=== PATIENT | female | born 1950 | race Caucasian/White ===

== ENCOUNTER → 2020-01-03 15:19 | Outpatient (CLI) | payer MEDICARE, SELFPAY ==
--- NOTE | ~2020-01-03 | XR_ITS ---
EXAMINATION: XR lumbar spine 2-3V DATE: 01/03/2020 15:39 INDICATION: Dorsalgia, unspecified TECHNIQUE: Anteroposterior and lateral views of the lumbar spine, and cone-down lateral view of the l umbosacral junction were obtained. COMPARISON: 01/06/2014 FINDINGS: There is grade 1 anterolisthesis of L5 on S1 with interval worsening since the prior examin ation. There is severe loss of intervertebral disc space height at L4-5 and moderate loss of interver tebral disc space height at L5-S1. The vertebral body heights are normal. There is severe facet osteo arthritis of the lower lumbar spine. There are right lower paraspinal and bilateral pelvic surgical c lips. IMPRESSION: 1. Grade 1 anterolisthesis of L5 on S1 with interval worsening since the comparison examination. 2. Severe lower lumbar spondylosis. Reviewed, dictated and finalized at location A. IMPRESSION: 1. Grade 1 anterolisthesis of L5 on S1 with interval worsening since the compar luis daniel examination. 2. Severe lower lumbar spondylosis.
--- NOTE | ~2020-01-03 | XR_ITS ---
EXAMINATION: XR hip RT 2V w AP pelvis INDICATION: Right hip pain TECHNIQUE: AP view of the pelvis and two views of the right hip are obtained. COMPARISON: None available FINDINGS: Bone alignment is normal. There is no fracture. Mild bilateral hip osteoarthritis is noted. There are right paraspinal and bilateral pelvic surgical clips. IMPRESSION: 1. Mild hip osteoarthritis without acute findings. Reviewed, dictated and finalized at location A.
== END ==
PROVIDERS: PCP Emergency Medicine; Visit Provider Emergency Medicine
DX: M25.551 Pain in right hip (principal); M54.9 Dorsalgia, unspecified; G89.29 Other chronic pain; M16.11 Unilateral primary osteoarthritis, right hip; M43.17 Spondylolisthesis, lumbosacral region; M47.816 Spondylosis without myelopathy or radiculopathy, lumbar region
CPT/HCPCS: 72100; 73502; 73521

== ENCOUNTER → 2020-08-08 13:43 | Outpatient (CLI) | payer MEDICARE, SELFPAY ==
--- NOTE | ~2020-08-08 | MM_ITS ---
EXAMINATION: MM screening linda BI w marissa HISTORY: Screening mammogram TECHNIQUE: Craniocaudal and mediolateral oblique 3-D tomosynthesis images were obtained and synthetic 2-D images were generated. CAD analysis was submitted and interpreted. COMPARISON: 09/23/2018, 09/12/2017, 04/29/2016 bilateral digital screening mammogram examinations BREAST PARENCHYMAL COMPOSITION: There are scattered areas of fibroglandular density. FINDINGS: There are numerous bilateral benign calcifications. There is no evidence of suspicious mass , calcification, or architectural distortion to suggest malignancy in either breast. There has been n o suspicious interval change. IMPRESSION: 1. No mammographic evidence of malignancy. 2. Recommend routine screening mammography in one year. BI-RADS Category 2: Benign finding(s). Reviewed, dictated and finalized at location A.
== END ==
PROVIDERS: PCP Emergency Medicine; Visit Provider Emergency Medicine
DX: Z12.31 Encounter for screening mammogram for malignant neoplasm of breast (principal)
CPT/HCPCS: 77063; 77067

== ENCOUNTER → 2022-01-10 13:23 | Outpatient (CLI) | payer MEDICARE, SELFPAY ==
--- NOTE | ~2022-01-10 | MM_ITS ---
EXAMINATION: MM screening linda BI w marissa HISTORY: Screening mammogram TECHNIQUE: Craniocaudal and mediolateral oblique 3-D tomosynthesis images were obtained and synthetic 2-D images were generated. CAD analysis was submitted and interpreted. COMPARISON: 08/08/2020, 09/23/2018, 09/08/2017 bilateral screening mammogram examinations BREAST PARENCHYMAL COMPOSITION: The breasts are almost entirely fatty. FINDINGS: Bilateral calcifications including bilateral benign small skin calcifications. There is no evidence of suspicious mass, calcification, or architectural distortion to suggest malignancy in eith er breast. There has been no suspicious interval change. IMPRESSION: 1. No mammographic evidence of malignancy. 2. Recommend routine screening mammography in one year. BI-RADS Category 2: Benign finding(s). Reviewed, dictated and finalized at location A.
== END ==
PROVIDERS: Visit Provider Emergency Medicine
DX: Z12.31 Encounter for screening mammogram for malignant neoplasm of breast (principal)
CPT/HCPCS: 77063; 77067

== ENCOUNTER → 2022-06-03 15:35 | Outpatient (CLI) | payer MEDICARE, SELFPAY ==
--- NOTE | ~2022-06-03 | DEXA_ITS ---
Bone Density Report Name: RUDDY CONWAY Age: 71 Sex: Female Ethnicity: White Date of : 1950 Indication: osteopenia; monitoring treatment; parental hip fracture; hysterectomy; postmenopausal Referring Provider: PAULO DOMINIQUE Study: Bone densitometry was performed. Exam Date: June 03, 2022 Accession number: [id number] Bone Density: Region BMD T-score Z-score Classification AP Spine (L1-L4) 1.284 2.2 4.4 Normal Femoral Neck (Left) 0.693 -1.4 0.5 Osteopenia Total Hip (Left) 0.784 -1.3 0.3 Osteopenia Femoral Neck (Right) 0.646 -1.8 0.1 Osteopenia Total Hip (Right) 0.837 -0.9 0.8 Normal Total Hip Mean 0.811 -1.1 0.6 Osteopenia World Health Organization criteria for BMD impression classify patients as: Normal (T-score at or above -1.0), Osteopenia (T-score between -1.0 and -2.5), or Osteoporosis (T-score at or below -2.5). 10-year Fracture Risk: FRAX not reported because: Treated for osteoporosis Previous Exams: Region Exam Age BMD T-score BMD Change BMD Change Date g/cm2 vs Baseline vs Previous AP Spine(L1-L4) 06/03/2022 71 1.284 2.2 0.310* 0.040* 06/18/2019 68 1.243 1.8 0.269* 0.011 02/12/2017 66 1.232 1.7 0.258* 0.027* 09/15/2012 61 1.205 1.4 0.230* 0.230* 05/30/2010 59 0.974 -0.7 Total Hip(Left) 06/03/2022 71 0.784 -1.3 0.076* 0.016 06/18/2019 68 0.768 -1.4 0.060* 0.001 02/12/2017 66 0.767 -1.4 0.059* -0.030* 09/15/2012 61 0.797 -1.2 0.089* 0.089* 05/30/2010 59 0.708 -1.9 Total Hip(Right) 06/03/2022 71 0.837 -0.9 0.075* 0.012 06/18/2019 68 0.825 -1.0 0.063* 0.037* 02/12/2017 66 0.788 -1.3 0.026 -0.018 09/15/2012 61 0.806 -1.1 0.044* 0.044* 05/30/2010 59 0.762 -1.5 *Denotes significance at 95% confidence level, LSC for AP Spine = 0.022 g/cm2, LSC for Total Hip = 0.027 g/cm2 Clinical Information Provided by Patient: Parent has had a hip fracture Is being treated for osteoporosis Has used the following medications: Fosamax (i.e. alendronate), Vitamin D, MTV Has the following medical conditions: Hysterectomy, HX OF OVARIAN CA- 1994 WITH CHEMO Patient maximum height was 62.0 Menopause Age: 44 Drinks caffeinated beverages Onset of menses at age 11 Number of children 0
== END ==
PROVIDERS: PCP Emergency Medicine; Visit Provider Emergency Medicine
DX: M81.0 Age-related osteoporosis without current pathological fracture (principal); M85.852 Other specified disorders of bone density and structure, left thigh; M85.851 Other specified disorders of bone density and structure, right thigh
CPT/HCPCS: 77080

== ENCOUNTER 2022-12-14 00:02 | Inpatient (IN) | payer MEDICARE, SELFPAY ==
[2022-12-14] VITALS (26 sets, daily range): BP systolic 106–150; BP diastolic 64–88; PULSE 66–94; RESP 11–31; TEMP 36.3–37.3; O2SAT 86–100
--- NOTE | 2022-12-14 | ECHO_ITS ---
Patient Info Name: Cait Fritz Age: 71 years : 1950 Gender: Female Ht: 62 in Wt: 189 lbs BSA: 1.98 m2 HR: 89 bpm BP: 110 / 60 mmHg Technical Quality: Fair Exam Date: 12/14/2022 7:30 AM Exam Location: [facility] Pulmonary Exam Room: ED 10 Patient Status: Outpatient Admit Date: 12/14/2022 Staff Ordering Physician: Steve Salomon MD Elevator Dispatcher: Uyen Espinoza RDCS Attending Provider: Bowen Kitchen MD Exam Type: CA echo dop color flow w con Study Info Complete two-dimensional, color flow and Doppler transthoracic echocardiogram is performed with contrast to opacify the left ventricle and to improve the deliniation of the left ventricle endocardial borders. Contrast/Agitated Saline Contrast/Ag. Saline: Definity Amount: 2.00 ml Administered By: Uyen Espinoza [facility] Existing IV Access: Yes IV Access Condition: patent with no signs of infiltration Summary 1. Left ventricular chamber dimension is normal. 2. Definity contrast administered improved wall motion interpretation. 3. Left ventricular systolic function is normal, estimated at 60-65%. 4. The left ventricular diastolic function is grade I diastolic dysfunction. 5. E/e' 10 is mildly elevated. 6. There is mild aortic valve sclerosis. 7. There is trace aortic valve regurgitation. 8. The mitral valve has mildly calcified annulus. 9. No pulmonary hypertension, estimated pulmonary arterial systolic pressure is 26 mmHg. Left Ventricle Definity contrast administered improved wall motion interpretation. E/e' 10 is mildly elevated. Left ventricular chamber dimension is normal. Left ventricular systolic function is normal, estimated at 60-65%. The left ventricular diastolic function is grade I diastolic dysfunction. Right Ventricle Right ventricular systolic function is normal and with normal TAPSE 2.1 cm. Right ventricular chamber dimension is normal. Left Atria Left atrial chamber dimension is normal. Right Atria Right atrial chamber dimension is normal. Aortic Valve The aortic valve is trileaflet. There is mild aortic valve sclerosis. There is no aortic valve stenosis. There is trace aortic valve regurgitation. Pulmonic Valve There is no pulmonic regurgitation. Mitral Valve The mitral valve has mildly calcified annulus. There is no mitral valve stenosis. There is no mitral valve regurgitation. Tricuspid Valve There is no tricuspid valve regurgitation. No pulmonary hypertension, estimated pulmonary arterial systolic pressure is 26 mmHg. Pericardium/Pleural There is no pericardial effusion. Inferior Vena Cava Normal inferior vena cava with >50% collapse upon inspiration consistent with normal right atrial pressure, 5 mmHg. Aorta The aortic root size at the sinus of Valsalva is normal. Left Ventricular Outflow Tract Name Value Normal LVOT 2D LVOT Diameter 2.10 cm LVOT Doppler LVOT Peak Gradient 4 mmHg LVOT Mean Gradient 2 mmHg LVOT VTI 19.30 cm LVOT VTI/AV
--- NOTE | ~2022-12-14 | CT_ITS ---
EXAMINATION: CT brain wo con DATE: 12/14/2022 01:54 INDICATION: Syncopal episode at home. Fall. TECHNIQUE: Computed tomography (CT) of the head was performed without intravenous contrast. The mA wa s adjusted according to patient size. Iterative reconstruction technique was employed. Exam dose: 60 5.33 mGy-cm total exam DLP. COMPARISON: None FINDINGS: No intracranial mass lesion or hemorrhage or cerebrovascular accident, midline shift or mas s effect effect. No subdural or epidural hematoma is detected. Mild cerebral and cerebellar volume loss. Mastoid air cells and paranasal sinuses are normally developed and aerated. No fracture or bone destr uction of the cranial vault. Initial teleradiology interpretation suggested increased density at the basilar vein and vein of Gale n, with recommendation for CT venogram. IMPRESSION: Suggestion of increased density of basilar vein and vein of Denny; CT venogram was recom mended Reviewed, dictated and finalized at Location A. Reviewed, dictated and finalized at location A. WARE ENGINEER ADVISOR IMPRESSION: Suggestion of increased density of basilar vein and vein of Denny; CT venogram was recommended
--- NOTE | ~2022-12-14 | US_ITS ---
EXAMINATION: US carotid duplex BI DATE: 12/14/2022 14:33 INDICATION: Syncope TECHNIQUE: Grayscale, color Doppler, and pulsed Doppler images of the cervical carotid arteries were obtained. The degree of vessel stenosis is placed in one of the following categories: normal, <50%, 5 0-69%, >=70% but less than near-occlusion, near-occlusion, or total occlusion. Note that percent sten osis relative to normal distal artery lumen diameter is indirectly measured from velocity measurement s as described by Osmin, et al. Radiology 2003; 229:340-346. COMPARISON: None. FINDINGS: RIGHT: The right common carotid artery (CCA) peak systolic velocity (PSV) is 87.2 cm/s. The right internal c arotid artery (ICA) PSV is 63.5 cm/s. The right ICA end-diastolic velocity (EDV) is 26.1 cm/s. [facility] PSV ratio is 0.7. Grayscale and color Doppler images yield an estimate of 0% diameter red uction from plaque in the ICA. The external carotid artery (ECA) PSV is 82.2 cm/s. There is antegrade flow in the right vertebral artery. LEFT: The left CCA PSV is 110.7 cm/s. The left ICA PSV is 72.3 cm/s. The left ICA EDV is 19.7 cm/s. The [facility] t ICA/CCA PSV ratio is 0.7. Grayscale and color Doppler images yield an estimate of 0% diameter reduc tion from plaque in the ICA. The ECA PSV is 85.7 cm/s. There is antegrade flow in the left vertebral artery. IMPRESSION: 1. No stenosis in the right internal carotid artery. 2. No stenosis in the left internal carotid artery. Reviewed, dictated and finalized at Location A. Reviewed, dictated and finalized at location A. TICE PROFESSIONAL
--- NOTE | ~2022-12-14 | CT_ITS ---
EXAMINATION: CT brain w con DATE: 12/14/2022 06:52 INDICATION: Fall. Syncope. TECHNIQUE: Computed tomography (CT) of the head was performed with 100 CC Omnipaque 350 intravenous c ontrast. The mA was adjusted according to patient size. Iterative reconstruction technique was employ ed. Exam dose: 605.33 mGy-cm total exam DLP. COMPARISON: December 14, [address] brain FINDINGS: Bilateral carotid siphon internal carotid artery calcifications. No intracranial arterial o r venous sinus thrombosis is noted. No intracranial mass lesion or hemorrhage, midline shift or mass effect effect. No subdural or epidur al hematoma. IMPRESSION: Cerebral atherosclerosis No acute intracranial abnormality Reviewed, dictated and finalized at Location [facility]. Reviewed, dictated and finalized at location A. 911 EMERGENCY DISPATCHER
--- NOTE | ~2022-12-14 | CT_ITS ---
EXAMINATION: CTA chest PE abdomen pel DATE: 12/14/2022 01:55 INDICATION: Substernal chest pain. Syncopal episode. Evaluate for pulmonary embolism. TECHNIQUE: Computed tomography angiography (CTA) of the chest was performed with 100 mL Omnipaque-350 intravenous contrast timed to evaluate the pulmonary arteries. Coronal maximum intensity projection 3D-reconstructions were created by the technologist. Automated exposure control and iterative reconst ruction technique were employed. Exam dose: 1453.81 mGy-cm total exam DLP. COMPARISON: None. FINDINGS: There is diagnostic contrast enhancement of the pulmonary arteries and no evidence of pulmo nary embolism. Ascending aortic lumen measures up to 3.9 cm approximate maximal dimension. No thoracic aortic dissec tion is evident. There is thoracic aortic atherosclerosis as well as great vessel and coronary artery calcified atherosclerosis. Heart size is within normal range. No pericardial or pleural effusion. No hilar or mediastinal mass lesion or lymphadenopathy. Calcified left lower lobe pulmonary granuloma. No pulmonary infiltrate or consolidation. Normal morphology of the adrenal glands. Diffuse idiopathic skeletal hyperostosis of the thoracic and lumbar spine. No suspicious osteolytic o r osteoblastic lesions are noted. IMPRESSION: No evidence of pulmonary embolism Aortic, coronary and great vessel atherosclerosis Reviewed, dictated and finalized at [facility]. Reviewed, dictated and finalized at location A. ER AND [employer] HELPER MACHINE
--- NOTE | 2022-12-14 00:15 | ECG_ITS ---
Measurements Intervals Mason Rate: 70 P: 52 FL: 198 QRS: -14 QRSD: 99 T: 61 QT: 404 QTc: 436 Interpretive Statements SINUS RHYTHM WITH OCCASIONAL VENTRICULAR PREMATURE COMPLEXES LOW QRS VOLTAGE IN PRECORDIAL LEADS [QRS DEFLECTION < 1.0 mV IN CHEST LEADS] ABNORMAL ECG NO PREVIOUS ECG AVAILABLE FOR COMPARISON Electronically Signed On 12-14-2022 7:56:06 REAM CUTTER by Kd Strong M.D.
--- NOTE | 2022-12-14 00:22 | ED.DIZZY ---
HPI - Dizziness General Chief Complaint: Syncope <Emma Che PA-C - Last Filed: 12/14/22 03:23> Stated Complaint: syncope <Emma Che PA-C - Last Filed: 12/14/22 03:23> Time Seen by Provider: 12/14/22 00:06 <Emma Che PA-C - Last Filed: 12/14/22 03:23> History of Present Illness HPI Narrative: 71 y/o F w/ hx of HLD and HTN reports via EMS after an episode of syncope at 2300. Pt states she was sleeping, woke up to get a snack, walked to the kitchen and began feeling diaphoretic, nauseous, and lightheaded. She then sat down on her kitchen chair and woke up on the floor. Pt reports she lost consciousness but was not sure for how long. She is not sure if she hit her head. Reports epigastric pain and indigestion when she woke up from the fall. She called EMS who gave her 4mg zofran, nitro spray, and ASA 324mg prior to arrival. Pt states she was feeling fine when she went to bed. Reports a history of synope about 6 months ago when she was ill with vomiting and diarrhea. She is currently denying vomiting, diarrhea, fever, body aches, chills, headache, vision changes, focal numbness or weakness, AMS, urinary complaints. She is reporting generalized weakness and and nausea at this time. Patient reports she has not been drinking a lot of water. <Emma Che PA-C - Last Filed: 12/14/22 03:23> Related Data Home Medications: Home Medications Medication Instructions Recorded Confirmed loratadine 10 mg tablet 10 mg PO DAILY 12/16/19 12/14/22 alendronate 70 mg tablet 70 mg PO WEEKLY 12/14/22 12/14/22 lisinopril 20 2 tablet DAILY 12/14/22 12/14/22 mg-hydrochlorothiazide 12.5 mg tablet simvastatin 40 mg tablet 40 mg PO HS 12/14/22 12/14/22 <LALO Merino Last Filed: 12/14/22 03:23> Allergies/Adverse Reactions: Allergies Allergy/AdvReac Type Severity Reaction Status Date / Time No Known Allergies Allergy Verified 09/24/22 10:49 <Emma Che PA-C - Last Filed: 12/14/22 03:23> Review of Systems Review of Systems: CONSTITUTIONAL: Denies fever, chills EYES: Denies visual changes, redness, or discharge. ENT: Denies rhinorrhea, congestion, sore throat, or otalgia. CARDIOVASCULAR: Denies chest pain, palpitations, or edema. RESPIRATORY: Denies cough or dyspnea. GASTROINTESTINAL: See HPI GENITOURINARY: Denies dysuria or hematuria. SKIN: Denies rash or itching. MUSCULOSKELETAL: Denies back pain, joint pain, or myalgia. NEUROLOGIC: See HPI PSYCHIATRIC: Denies anxiety or depression. <Emma Che PA-C - Last Filed: 12/14/22 03:23> [facility] Past Medical History Medical History: Medical History Body mass index [BMI] 30.0-30.9, adult (08/17/15) Body mass index [BMI] 31.0-31.9, adult (02/15/16) Body mass index [BMI] 32.0-32.9, adult (08/19/16) Body mass index [BMI] 33.0-33.9, adult (11/25/16) Essential (primary) hypertension HLD (hyperlipidemia) Osteoporosis Vitamin D deficiency <Emma Che PA-C - Last Filed: 12/14/22 03:23> Family History Family History: Family History Father Acute myocardial infarction, Onset Age: 64 Other Family history of malignant neoplasm <Emma Che PA-C - Last Filed: 12/14/22 03:23> Social History Social History: Social History Smoking packs per day: 0.5 Smoking cigarettes per day: 10.0 Years smoked: 15 Smoking pack-years: 7.50 Smoking status: Former smoker Tobacco type: cigarettes Alcohol intake: never Substance use: never Lack of Transportation: No Lack of Food: Never True Current Housing: I Have Housing Concerned About Future Housing: No Difficulty Paying Gas/Electric Bills: No Difficulty Paying for Meds: No Currently Unemployed: No Education: High School Diploma/GED
[2022-12-14] MEDS: SODIUM CHLORIDE 0.9% IV 1,000 ML 999 ML IV CONT (00:33)
[2022-12-14] MEDS: ONDANSETRON INJ 4 MG/2 ML VIAL IV PUSH (00:33)
[2022-12-14 00:45] LABS: Basophils Absolute Auto 0.1 K/mm3 (0.0-0.1); Basophils Percent Auto 0.8 % (0.2-1.2); Eosinophils Absolute Auto 0.2 K/mm3 (0-0.3); Eosinophils Percent Auto 2.1 % (0-4.4); Hematocrit 39.9 % (37.0-47.0); Hemoglobin 13.8 g/dL (12.0-15.0); Immature Granulocyte Absolute 0.05 K/mm3 (0.00-0.031); Immature Granulocyte Percent A 0.7 % (0-0.5); Lymphocytes Absolute Auto 2.84 K/mm3 (0.9-3.2); Mean Corpuscular HGB Conc 34.6 g/dl (32-36); Mean Corpuscular Hemoglobin 30.8 pg (26-34); Mean Corpuscular Volume 89.1 fl (80-100); Mean Platelet Volume 9.7 fl (7.4-10.4); Monocytes Absolute Auto 0.6 K/mm3 (0.1-0.6); Monocytes Percent Auto 7.2 % (2.6-8.5); Neutrophils Percent Auto 52.2 % (45.5-73.1); Platelet Count Result 237 k/mm3 (150-375); Red Blood Count 4.48 M/mm3 (4.2-5.4); Red Cell Distribution Width 12.5 % (11.5-14.5); White Blood Count 7.7 K/mm3 (4.5-10.0)
[2022-12-14 01:18] LABS: Alanine Aminotransferase 20 U/L (6-35); Albumin Level 4.5 g/dL (3.5-5.1); Alkaline Phosphatase 73 U/L (38-126); Anion Gap 7 mmol/L (8-16); Aspartate Amino Transferase 27 U/L (14-36); Bilirubin,Total 0.7 mg/dL (0.2-1.3); Blood Urea Nitrogen 28 mg/dL (7-17); Calcium 9.7 mg/dL (8.4-10.2); Carbon Dioxide 25 mmol/L (22-30); Chloride 101 mmol/L (98-107); Estimated CRCL calculation 50 ml/min; Estimated Glomerular Filt Rate > 60; Glucose 124 mg/dL (65-110); Lipase 109 U/L (23-300); Potassium 3.2 mmol/L (3.4-5.0); Sodium 133 mmol/L (137-145)
[2022-12-14 01:21] LABS: NT Pro B Type Natriuretic Pept 107 pg/mL (19.9-100); Troponin I < 0.012 ng/mL (0.000-0.034)
[2022-12-14] MEDS: PROCHLORPERAZINE EDISYLATE 10 MG/2 ML VIAL IV PUSH (02:00)
[2022-12-14 02:19] LABS: Influenza A QL RT-PCR Negative (Negative); Influenza B QL RT-PCR Negative (Negative); SARS-CoV-2 RNA PCR Negative
--- NOTE | 2022-12-14 03:40 | PM.IMHP ---
H&P: HPI History of Present Illness Date/Time: 12/14/22 03:40 Chief Complaint: Syncope Narrative: This is a 71-year-old female with past medical history significant for hypertension, dyslipidemia. Patient presents to the emergency room after having syncopal episode while standing in her kitchen had lightheadedness, diaphoresis, cold clammy sensation, decided to sit down and upon waking up she found herself laying on the floor was able to get up on her own denies any incontinence of bowel or bladder, was able to walk to her room and called EMS patient was brought to the emergency room. Got nitro aspirin and Zofran in route. Patient states that she has been in her usual state of health denies any fevers, rigors, chills, cough, sputum production, nausea, vomiting, diarrhea, abdominal pain, leg swelling, calves pain, palpitations, PND orthopnea, no focal sensorimotor deficit, no speech disturbance. Preliminary workup has been essentially nonrevealing. CT a of chest abdomen and pelvis are currently in progress. Patient is been placed in observation for further evaluation management and treatment. Review of Systems Review of Systems: Syncope Constitutional: Constitutional: Denies chills, Denies fatigue, Denies fever(s), Denies lethargy, Denies malaise, Denies night sweats and Denies weakness Eyes: Eyes: Denies change in vision ENT: Denies dysphagia, Reports dizziness and Denies odynophagia Cardiovascular: Cardiovascular: Denies chest pain, Denies rapid heart rate, Denies irregular heart rhythm, Denies leg edema, Reports lightheadedness and Denies dyspnea Respiratory: Respiratory: Denies cough and Denies dyspnea Gastrointestinal: Gastrointestinal: Denies abdominal pain, Denies dyspepsia, Denies heartburn, Denies diarrhea, Denies nausea and Denies vomiting Genitourinary: Genitourinary: Denies dysuria Musculoskeletal: Musculoskeletal: Denies arthralgias and Denies muscle weakness Integumentary/Breasts: Skin/Breast: Denies rash Neurologic: Denies Abnormal speech present, Denies confusion, Reports syncope, Denies frequent falls, Denies headache(s), Denies focal weakness and Denies Sensory deficit (Neuro) Psychiatric: Psychiatric: Reports no additional psychiatric complaints and Reports as per HPI Endocrine: Endocrine: Denies cold intolerance, Denies flushing, Denies heat intolerance, Denies polyphagia, Denies polydipsia and Denies palpitations Hematologic/Lymphatic: Hematologic/Lymphatic: Reports no additional hematologic/lymphatic complaints and Reports as per HPI Allergic/Immunologic: Allergic/Immunologic: Reports no additional allergic/immunologic complaints and Reports as per HPI [facility] Past Medical History Medical History Body mass index [BMI] 30.0-30.9, adult (08/17/15) Body mass index [BMI] 31.0-31.9, adult (02/15/16) Body mass index [BMI] 32.0-32.9, adult (08/19/16) Body mass index [BMI] 33.0-33.9, adult (11/25/16) Essential (primary) hypertension HLD (hyperlipidemia) Osteoporosis Vitamin D deficiency Family History Family History Father Acute myocardial infarction, Onset Age: 64 Other Family history of malignant neoplasm Social History Social History Smoking status: Never smoker Alcohol intake: never Meds Home Medications and Allergies Home Medications Medication Instructions Recorded Confirmed Type loratadine 10 mg tablet 10 mg PO DAILY 12/16/19 12/18/21 History alendronate 70 mg tablet See Rx Instructions PO .COMPLEX 07/01/22 Rx #12 tabs lisinopril 20 2 tablet PO DAILY #180 tabs 07/03/22 Rx mg-hydrochlorothiazide 12.5 mg tablet amlodipine 5 mg tablet (Norvasc) 5 mg PO DAILY #90 tabs 10/09/22 Rx simvastatin 40 mg tablet See Rx Instructions .Route 11/25/22 Rx .COMPLEX #90 tabs Allergies A
[2022-12-14] MEDS: POTASSIUM CHLORIDE 20 MEQ TABLET 40 MEQ PO (03:46)
[2022-12-14 03:48] LABS: Appearance Urine Clear (Clear); Bilirubin Urine Negative (Negative); Blood Urine Negative (Negative); Color Urine Yellow (Yellow); Glucose Urine UA Negative (Negative); Ketones Urine Negative (Negative); Leukocyte Esterase Ur Negative LEU/UL (Negative); Nitrate Urine Negative (Negative); Protein Urine Negative (Negative); Specific Grav Ur 1.032 (1.001-1.035); Urobilinogen Urine 0.2 mg/dL (<2.0); pH Urine 6.5 (5.0-9.0)
[2022-12-14 04:07] LABS: Troponin I < 0.012 ng/mL (0.000-0.034)
[2022-12-14 04:30] LABS: Add Urine Microscopic? NO
[2022-12-14 06:43] LABS: Troponin I < 0.012 ng/mL (0.000-0.034)
--- NOTE | 2022-12-14 07:09 | PC.NURSE ---
Report given to Marielena Santana RN
[2022-12-14] MEDS: PERFLUTREN LIPID MICROSPHERES 1.5 ML VIAL DILUTED TO 10 ML TOTAL VOLUME IV PUSH (08:00)
--- NOTE | 2022-12-14 16:00 | PM.IMPN ---
Progress Note: A&P Assessment and Plan (1) Syncope and collapse: Code(s): R55 - Syncope and collapse Status: Acute Assessment and Plan: Place in observation Echocardiogram in a.m. Carotid Doppler in a.m. CT a of chest abdomen and pelvis currently in progress CT head reviewed Orthostatic Bolus IV fluids as needed Blood pressure has remained stable (2) Hypertension: Code(s): I10 - Essential (primary) hypertension Status: Acute Assessment and Plan: Resume home meds as needed (3) Polyosteoarthritis, unspecified: Code(s): M15.9 - Polyosteoarthritis, unspecified Status: Acute Assessment and Plan: Tylenol as needed (4) Chronic back pain: Qualifiers: Back pain location: low back pain Back pain laterality: unspecified Sciatica presence: without sciatica Qualified Code(s): M54.5 - Low back pain; G89.29 - Other chronic pain Code(s): M54.9 - Dorsalgia, unspecified; G89.29 - Other chronic pain Status: Acute Assessment and Plan: Tylenol as needed (5) Osteoporosis: Qualifiers: Osteoporosis type: age-related Presence of current pathological fracture: with current pathological fracture Encounter type: sequela Qualified Code(s): M80.00XS - Age-related osteoporosis with current pathological fracture, unspecified site, sequela Code(s): M81.0 - Age-related osteoporosis without current pathological fracture Status: Acute Assessment and Plan: On biphosphonate therapy (6) HLD (hyperlipidemia): Qualifiers: Hyperlipidemia type: mixed hyperlipidemia Qualified Code(s): E78.2 - Mixed hyperlipidemia Code(s): E78.5 - Hyperlipidemia, unspecified Status: Acute Assessment and Plan: Continue statin Plan Syncopal episode: Troponins negative negative serial cardiac enzymes EKG with normal sinus rhythm with nonspecific ST-T changes. COVID flu negative WBC count is normal no signs of infection BUN is mildly elevated mild hypokalemia noted. UA is negative vitals been stable. Carotid ultrasound and echocardiogram ordered which is pending . CTA is negative for PE. There is noted aortic coronary and great vessel atherosclerosis. CT head with suggestion of increased density of the basilar vein and vein of Denny. CT venogram was done which showed no acute abnormality # hypertension Hyperlipidemia Osteoporosis Chronic back pain Poly osteoarthritis DVT prophylaxis Code status full code Subjective Date/time seen: 12/14/22 16:00 Interval history: Presented after an episode of syncope at 11:00 p.m.. Peck diaphoretic nauseous and lightheaded refer that happened. She sat on the chair however she woke on the floor after she loss consciousness. No report of head injury. she feels well. Telemetry was reviewed. Occasional PVCs otherwise normal sinus rhythm Review of Systems Review of Systems: All systems reviewed & are unremarkable except as noted in HPI and below Exam Narrative: GENERAL: Well-appearing, well-nourished, and in no acute distress. HEAD: Normocephalic, atraumatic. EYES: PERRLA and EOMI. NECK: Supple.? No adenopathy or masses. CHEST: Clear to auscultation.? No respiratory distress.? No wheezes rales or rhonchi HEART: Regular rate and rhythm.? No murmur heard.? Normal peripheral pulses. ABDOMEN: Soft, nondistended, normal active bowel sounds. EXTREMITIES: Normal range of motion.? No edema. SKIN: Warm, dry, no rash. NEURO: No focal deficits.? Alert and oriented x3.? Cranial nerves II through XII intact.? Sensation intact throughout extremities.? Strength 5 out of 5 throughout.? DP and radial pulses 2+.? Normal [id number]. PSYCH: Normal mood and affect. ? Objective Data Vital Signs Vital Signs: Vital Signs - 24 hr 12/14/22 00:12 12/14/22 00:16 12/14/22 00:32 Temperature 97.4 F L Pulse Rate 73 75 66 Respiratory Rate 15 31 H 11 L Blood Pressure 130/86 130/86 112/6
[2022-12-14] MEDS: PANTOPRAZOLE 40 MG TABLET PO (18:08)
[2022-12-14] MEDS: SIMVASTATIN 20 MG TABLET 40 MG PO (20:50)
[2022-12-15] VITALS (12 sets, daily range): BP systolic 107–127; BP diastolic 59–76; PULSE 74–97; RESP 16–21; TEMP 36.6–36.8; O2SAT 94–97
[2022-12-15 05:52] LABS: Basophils Percent Auto 0.6 % (0.2-1.2); Eosinophils Absolute Auto 0.1 K/mm3 (0-0.3); Eosinophils Percent Auto 1.5 % (0-4.4); Hematocrit 38.3 % (37.0-47.0); Hemoglobin 12.5 g/dL (12.0-15.0); Immature Granulocyte Absolute 0.02 K/mm3 (0.00-0.031); Immature Granulocyte Percent A 0.3 % (0-0.5); Lymphocytes Absolute Auto 2.59 K/mm3 (0.9-3.2); Lymphocytes Percent Auto 35.9 % (18.3-44.2); Mean Corpuscular HGB Conc 32.6 g/dl (32-36); Mean Corpuscular Hemoglobin 30.1 pg (26-34); Mean Corpuscular Volume 92.3 fl (80-100); Mean Platelet Volume 9.5 fl (7.4-10.4); Monocytes Absolute Auto 0.6 K/mm3 (0.1-0.6); Monocytes Percent Auto 8.3 % (2.6-8.5); Neutrophils Absolute Auto 3.9 K/mm3 (1.3-6.7); Neutrophils Percent Auto 53.4 % (45.5-73.1); Platelet Count Result 205 k/mm3 (150-375); Red Blood Count 4.15 M/mm3 (4.2-5.4); Red Cell Distribution Width 12.9 % (11.5-14.5); White Blood Count 7.2 K/mm3 (4.5-10.0)
[2022-12-15 06:01] LABS: Alanine Aminotransferase 17 U/L (6-35); Albumin Level 3.9 g/dL (3.5-5.1); Alkaline Phosphatase 61 U/L (38-126); Anion Gap 4 mmol/L (8-16); Aspartate Amino Transferase 19 U/L (14-36); Bilirubin,Total 0.7 mg/dL (0.2-1.3); Blood Urea Nitrogen 19 mg/dL (7-17); Calcium 8.8 mg/dL (8.4-10.2); Carbon Dioxide 29 mmol/L (22-30); Chloride 102 mmol/L (98-107); Estimated CRCL calculation 50 ml/min; Estimated Glomerular Filt Rate > 60; Glucose 95 mg/dL (65-110); Magnesium 1.8 mg/dL (1.6-2.3); Potassium 3.6 mmol/L (3.4-5.0); Sodium 135 mmol/L (137-145)
[2022-12-15] MEDS: PANTOPRAZOLE 40 MG TABLET PO (09:36)
[2022-12-15] MEDS: amLODIPine BESYLATE 5 MG TABLET PO (09:36)
[2022-12-15] MEDS: LORATADINE 10 MG TABLET PO (09:38)
[2022-12-15] MEDS: HYDROcodone/acetaminophen (*CRX) 5-325 MG TABLET 1 TAB PO ×3 (12:06→20:58)
--- NOTE | 2022-12-15 15:12 | PM.IMPN ---
Progress Note: A&P Assessment and Plan (1) Syncope and collapse: Code(s): R55 - Syncope and collapse Status: Acute (2) Hypertension: Code(s): I10 - Essential (primary) hypertension Status: Acute (3) Polyosteoarthritis, unspecified: Code(s): M15.9 - Polyosteoarthritis, unspecified Status: Acute (4) Chronic back pain: Qualifiers: Back pain location: low back pain Back pain laterality: unspecified Sciatica presence: without sciatica Qualified Code(s): M54.5 - Low back pain; G89.29 - Other chronic pain Code(s): M54.9 - Dorsalgia, unspecified; G89.29 - Other chronic pain Status: Acute (5) Osteoporosis: Qualifiers: Osteoporosis type: age-related Presence of current pathological fracture: with current pathological fracture Encounter type: sequela Qualified Code(s): M80.00XS - Age-related osteoporosis with current pathological fracture, unspecified site, sequela Code(s): M81.0 - Age-related osteoporosis without current pathological fracture Status: Acute (6) HLD (hyperlipidemia): Qualifiers: Hyperlipidemia type: mixed hyperlipidemia Qualified Code(s): E78.2 - Mixed hyperlipidemia Code(s): E78.5 - Hyperlipidemia, unspecified Status: Acute Plan # Syncopal episode: Troponins negative negative serial cardiac enzymes EKG with normal sinus rhythm with nonspecific ST-T changes. COVID flu negative WBC count is normal no signs of infection BUN is mildly elevated mild hypokalemia noted. UA is negative vitals been stable. Carotid ultrasound and echocardiogram ordered which is pending . CTA is negative for PE. There is noted aortic coronary and great vessel atherosclerosis. CT head with suggestion of increased density of the basilar vein and vein of Denny. CT venogram was done which showed no acute abnormality. Carotid ultrasound with no hemodynamically significant stenosis. Echocardiogram EF 60 65% grade 1 diastolic dysfunction no significant valvular abnormality. Benefit from Holter monitor at discharge which will be arranged in the morning # hypertension #Hyperlipidemia #Osteoporosis #Chronic back pain #Poly osteoarthritis # DVT prophylaxis #Code status full code Subjective Date/time seen: 12/15/22 15:12 Interval history: Presented after an episode of syncope at 11:00 p.m.. [place] diaphoretic nauseous and lightheaded refer that happened. She sat on the chair however she woke on the floor after she loss consciousness. No report of head injury. she feels well. Telemetry was reviewed. Occasional PVCs otherwise normal sinus rhythm 12/15/2022: No overnight events. Sore In her left lower back from the fall. Bruises in her facial area. Review of Systems Review of Systems: All systems reviewed & are unremarkable except as noted in HPI and below Exam Narrative: GENERAL: Well-appearing, well-nourished, and in no acute distress. HEAD: Normocephalic, atraumatic. EYES: PERRLA and EOMI. NECK: Supple.? No adenopathy or masses. CHEST: Clear to auscultation.? No respiratory distress.? No wheezes rales or rhonchi HEART: Regular rate and rhythm.? No murmur heard.? Normal peripheral pulses. ABDOMEN: Soft, nondistended, normal active bowel sounds. EXTREMITIES: Normal range of motion.? No edema. SKIN: Warm, dry, no rash. NEURO: No focal deficits.? Alert and oriented x3.? Cranial nerves II through XII intact.? Sensation intact throughout extremities.? Strength 5 out of 5 throughout.? DP and radial pulses 2+.? Normal [id number]. PSYCH: Normal mood and affect. ? Objective Data Vital Signs Vital Signs: Vital Signs - 24 hr 12/14/22 16:00 12/14/22 20:00 12/14/22 22:40 Temperature 98.2 F Pulse Rate 84 92 94 Respiratory Rate 16 Blood Pressure 109/64 Pulse Oximetry 94 Oxygen Delivery 12/15/22 00:43 12/15/22 00:00 12/15/22 04:00 Temperature 98.3 F Pulse Rate 97 87 88 Respiratory Rate 16
[2022-12-15] MEDS: ALENDRONATE SODIUM 70 MG TABLET PO (17:18)
[2022-12-15] MEDS: SIMVASTATIN 20 MG TABLET 40 MG PO (20:58)
[2022-12-16] VITALS: PULSE 80
[2022-12-16 03:43] VITALS: BP 113/68; PULSE 80; RESP 17; TEMP 36.8; O2SAT 94
[2022-12-16 04:00] VITALS: PULSE 80
[2022-12-16] MEDS: HYDROcodone/acetaminophen (*CRX) 5-325 MG TABLET 1 TAB PO (04:48)
[2022-12-16 08:00] VITALS: PULSE 85
[2022-12-16] MEDS: PANTOPRAZOLE 40 MG TABLET PO (09:03)
[2022-12-16] MEDS: amLODIPine BESYLATE 5 MG TABLET PO (09:03)
[2022-12-16] MEDS: LORATADINE 10 MG TABLET PO (09:03)
[2022-12-16 10:11] VITALS: BP 107/62; PULSE 101; RESP 13; TEMP 36.6; O2SAT 95
--- NOTE | 2022-12-16 11:43 | PM.DS ---
DS: Admitting Diagnosis Discharge Date 12/16/2022 Admitting Diagnosis SYNCOPE DS: Discharge Diagnosis Discharge Diagnosis (1) Syncope and collapse: Code(s): R55 - Syncope and collapse Status: Acute (2) Hypertension: Code(s): I10 - Essential (primary) hypertension Status: Acute (3) Polyosteoarthritis, unspecified: Code(s): M15.9 - Polyosteoarthritis, unspecified Status: Acute (4) Chronic back pain: Qualifiers: Back pain location: low back pain Back pain laterality: unspecified Sciatica presence: without sciatica Qualified Code(s): M54.5 - Low back pain; G89.29 - Other chronic pain Code(s): M54.9 - Dorsalgia, unspecified; G89.29 - Other chronic pain Status: Acute (5) Osteoporosis: Qualifiers: Osteoporosis type: age-related Presence of current pathological fracture: with current pathological fracture Encounter type: sequela Qualified Code(s): M80.00XS - Age-related osteoporosis with current pathological fracture, unspecified site, sequela Code(s): M81.0 - Age-related osteoporosis without current pathological fracture Status: Acute (6) HLD (hyperlipidemia): Qualifiers: Hyperlipidemia type: mixed hyperlipidemia Qualified Code(s): E78.2 - Mixed hyperlipidemia Code(s): E78.5 - Hyperlipidemia, unspecified Status: Acute DS: Summary Hospital Course Hospital Course: #? Syncopal episode: Troponins negative negative serial cardiac enzymes. EKG with normal sinus rhythm with nonspecific ST-T changes.? COVID flu negative WBC count is normal no signs of infection BUN is mildly elevated mild hypokalemia noted.? UA is negative vitals been stable.? Carotid ultrasound and echocardiogram ordered. CTA is negative for PE.? There is noted aortic coronary and great vessel atherosclerosis.? CT head? with suggestion of increased density of the basilar vein and vein of Denny.? CT venogram was done which showed no acute abnormality.? Carotid ultrasound with no hemodynamically? significant stenosis.? Echocardiogram EF 60 65% grade 1 diastolic dysfunction no significant valvular abnormality.? Benefit from Holter monitor at discharge WHICH IS ARRANGING THE DISCHARGE. TELEMETRY REVEALED NORMAL SINUS RHYTHM THROUGHOUT WITH OCCASIONAL PVCS. # hypertension BLOOD PRESSURE STABLE THE ON AMLODIPINE. WILL STOP LISINOPRIL HYDROCHLOROTHIAZIDE AT DISCHARGE ?#Hyperlipidemia CONTINUED SIMVASTATIN ?#Osteoporosis ?#Chronic back pain ?#Poly osteoarthritis ?# DVT prophylaxis ?#Code status full code Time Spent with Patient Time attestation: Total time spent providing and/or coordinating discharge services: 40 MINUTES Exam Narrative: GENERAL: Well-appearing, well-nourished, and in no acute distress. HEAD: Normocephalic, atraumatic. EYES: PERRLA and EOMI. NECK: Supple.? No adenopathy or masses. CHEST: Clear to auscultation.? No respiratory distress.? No wheezes rales or rhonchi HEART: Regular rate and rhythm.? No murmur heard.? Normal peripheral pulses. ABDOMEN: Soft, nondistended, normal active bowel sounds. EXTREMITIES: Normal range of motion.? No edema. SKIN: Warm, dry, no rash. NEURO: No focal deficits.? Alert and oriented x3.? Cranial nerves II through XII intact.? Sensation intact throughout extremities.? Strength 5 out of 5 throughout.? DP and radial pulses 2+.? Normal [id number]-[id number]. PSYCH: Normal mood and affect. ? DS: Data Data Completed and Pending Completed studies during hospitalization: Exam Type: ? ? CA echo dop color flow w con Study Info Complete two-dimensional, color flow and Doppler transthoracic echocardiogram is performed with contrast to opacify the left ventricle and to improve the deliniation of the left ventricle endocardial borders. Account #: ? ? [id number] Contrast/Agitated Saline Contrast/Ag. Saline: ? ? Definity Amount: ? ? 2.00 ml Administered By: ? ? Alexis,? Uyen Raygoza
== END 2022-12-16 13:03 | disposition home or self-care (01) | DRG 312 ==
LOC: ANHED 08:35 → ANH2MED 09:06
PROVIDERS: Physician Assistant; Admitting Provider Internal Medicine; Emergency Provider Emergency Medicine; PCP Emergency Medicine; Visit Provider Internal Medicine
DX: R55 Syncope and collapse (principal); I10 Essential (primary) hypertension; M15.9 Polyosteoarthritis, unspecified; M54.50 Low back pain, unspecified; G89.29 Other chronic pain; E78.5 Hyperlipidemia, unspecified; M81.0 Age-related osteoporosis without current pathological fracture; Z87.891 Personal history of nicotine dependence
CPT/HCPCS: 36415; 70450; 70460; 71275; 74177; 80053; 81003; 83690; 83735; 83880; 84484; 85025; 87636; 93005; 93306; 93880; 96361; 96374; 96375; 97161; 97165; 97535; 99285; A9270; C8929; G0378; J0780; J2405; J7030; Q9957; Q9967

== ENCOUNTER → 2023-07-03 13:24 | Outpatient (CLI) | payer MEDICARE, SELFPAY ==
--- NOTE | ~2023-07-03 | MM_ITS ---
EXAMINATION: MM screening linda BI w marissa HISTORY: Screening mammogram TECHNIQUE: Craniocaudal and mediolateral oblique 3-D tomosynthesis images were obtained and synthetic 2-D images were generated. CAD analysis was submitted and interpreted. COMPARISON: 01/06/2022, 08/08/2020 bilateral screening mammogram examinations BREAST PARENCHYMAL COMPOSITION: The breasts are almost entirely fatty. FINDINGS: Numerous bilateral benign calcifications are again noted. There is no evidence of suspiciou s mass, calcification, or architectural distortion to suggest malignancy in either breast. There has been no suspicious interval change. IMPRESSION: 1. No mammographic evidence of malignancy. 2. Recommend routine screening mammography in one year. BI-RADS Category 1: Negative Reviewed, dictated and finalized at location A.
== END ==
PROVIDERS: PCP Emergency Medicine; Visit Provider Emergency Medicine
DX: Z12.31 Encounter for screening mammogram for malignant neoplasm of breast (principal)
CPT/HCPCS: 77063; 77067

== ENCOUNTER 2023-08-04 11:40 | Outpatient (CLI) | payer MEDICARE, SELFPAY ==
--- NOTE | ~2023-08-04 | US_ITS ---
US venous doppler [facility] DATE: 08/04/2023 12:37 INDICATION: Left lower extremity swelling TECHNIQUE: Real-time and color flow imaging and Doppler analysis of the veins of the left lower extre mity COMPARISON: None FINDINGS: The left greater saphenous vein is patent. There is spontaneous and phasic flow and normal augmentation and color flow signal and normal compression of the deep veins. There is an approximately 1.4 x 2.4 cm left popliteal cyst. IMPRESSION: No evidence of deep venous thrombosis of left lower extremity Small left popliteal cyst Reviewed, dictated and finalized at [facility]. Reviewed, dictated and finalized at location B.
== END 2023-08-04 11:41 | disposition home or self-care (01) ==
PROVIDERS: PCP Emergency Medicine; Visit Provider Emergency Medicine
DX: R60.9 Edema, unspecified (principal); I82.409 Acute embolism and thrombosis of unspecified deep veins of unspecified lower extremity; M71.22 Synovial cyst of popliteal space [Baker], left knee
CPT/HCPCS: 93971

== ENCOUNTER 2024-08-19 13:13 | Outpatient (CLI) | payer MEDICARE, SELFPAY ==
--- NOTE | ~2024-08-19 | MM_ITS ---
EXAMINATION: MM screening linda BI w marissa HISTORY: Screening mammogram TECHNIQUE: Craniocaudal and mediolateral oblique 3-D tomosynthesis images were obtained and synthetic 2-D images were generated. CAD analysis was submitted and interpreted. COMPARISON: 07/03/2023, 01/10/2022, 08/08/2020 BREAST PARENCHYMAL COMPOSITION:Not Dense. The breasts are almost entirely fatty FINDINGS: No suspicious mass, calcification, or architectural distortion are identified in either paola ast to suggest malignancy. There has been no suspicious interval change. IMPRESSION: No mammographic evidence of malignancy. Recommend routine screening mammography in one year. BI-RADS Category 1: Negative Reviewed, dictated and finalized at location .
== END 2024-08-19 13:14 | disposition home or self-care (01) ==
LOC: MICIMG 13:13
PROVIDERS: PCP Emergency Medicine; Visit Provider Emergency Medicine
DX: Z12.31 Encounter for screening mammogram for malignant neoplasm of breast (principal)
CPT/HCPCS: 77063; 77067

== ENCOUNTER 2025-03-09 12:36 | Outpatient (CLI) | payer MEDICARE, SELFPAY ==
--- NOTE | ~2025-03-09 | DEXA_ITS ---
Bone Density Report Name: RUDDY CONWAY Age: 74 Sex: Female Ethnicity: White Date of : 1950 Indication: postmenopausal; screening for osteoporosis; parental hip fracture; cancer; hysterectomy; Referring Provider: PAULO DOMINIQUE Study: Bone densitometry was performed. Exam Date: March 09, 2025 Accession number: [id number] Bone Density: Region BMD T-score Z-score Classification AP Spine(L1-L4) 1.260 1.9 4.3 Normal Femoral Neck (Left) 0.652 -1.8 0.3 Osteopenia Total Hip (Left) 0.808 -1.1 0.7 Osteopenia Femoral Neck (Right) 0.704 -1.3 0.8 Osteopenia Total Hip (Right) 0.777 -1.4 0.4 Osteopenia Total Hip Mean 0.792 -1.3 0.6 Osteopenia World Health Organization criteria for BMD impression classify patients as: Normal (T-score at or above -1.0), Osteopenia (T-score between -1.0 and -2.5), or Osteoporosis (T-score at or below -2.5). 10-year Fracture Risk: FRAX not reported because: Treated for osteoporosis Clinical Information Provided by Patient: Parent has had a hip fracture Is being treated for osteoporosis Has used the following medications: Fosamax (i.e. alendronate), Vitamin D, Calcium Has the following medical conditions: Cancer, Hysterectomy Patient maximum height was 62 Menopause Age: 44 Drinks caffeinated beverages Onset of menses at age 11 Number of children 0 Impression: The patient has low bone mass, based on the Left Femoral Neck T-score. The patient has risk factors, including: parental hip fracture. Discussion: It is important to ask patients whether they are taking their medications and to encourage continued and appropriate compliance with their osteoporosis therapies to reduce fracture risk. It is also important to review their risk factors and encourage appropriate calcium and vitamin D intakes, exercise, fall prevention and other lifestyle measures. Follow-Up: Consider a repeat BMD and Vertebral Fracture Assessment (VFA) exam in 2 years or sooner if medically necessary, to reassess this patient's status. Reported by: CLEVE on 03/09/2025 1:14:00 PM. Reviewed, dictated and finalized at location A.
--- OUTSIDE RECORDS SUMMARY | 2025-03-09 12:40 | XMS_ITS | Clinical Summary ---
Author Organization [facility] [place] [address] [facility] [address] [place] [address] Care Team Providers Care Sequins Winder Name Role Phone Kd Weaver MD Primary Care Provide r Allergies No known active allergies Medications alendronate (FOSAMAX) 70 mg tablet TAKE 1 TABLET BY MOUTH ONCE A WEEK IN THE MORNING AT LEAST 30 MINUTES BEFORE THE FIRST FOOD, BEVERAGE OR MEDICATION OF THE DAY. 3 Active simvastatin (ZOCOR) 40 mg tablet Take 1 tablet (40 mg total) by mouth nightly 3 Active amLODIPine (NORVASC) 5 mg tablet Take 1 tablet (5 mg total) by mouth daily 3 Active loratadine (CLARITIN) 10 mg tablet Take 1 tablet (10 mg total) by mouth daily Active ascorbic acid (ascorbic acid with cristiana hips) 500 mg tablet,chewable Acti ve Ca-D3-mag fa-cqub-ghj-man g-bor (Calcium 600-D3 Plus, mag-zinc,) 600 mg calcium- 20 mcg-50 mg tablet Take by mouth Active Active Problems Problem Noted Date Diagnosed Date SVT (supraventricular tachycardia) 04/02/2023 Surgical History Surgery Date Site/Laterality Comments HYSTERECTOMY Medical History Medical History Date Comments SVT (supraventricular tachycardia) Syncope Hypertension Hyperlipidemia Family History Medical History Relation Name Comments Heart attack Father Hypertension Father Heart disease Mother Hypertension Mother Relation Name Status Comments Father Mother Social History Tobacco Use Types Packs/Day Years Used Date Smoking Tobacco: Former Cigarettes S tarted: 1984 Tobacco Cessation:Counseling Given: Not Answered Personal Safety Answer Date Recorded Getting School Help Needed Not on file 12/18 Comments Unknown Sex and Gender Information Value Date Recorded Sex Assigned at Not on file 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 Gender Identity Not on file Sexual Orientation Not on file Obstetrics History Last Filed Vital Signs Vital Sign Reading Time Taken Comments Blood Pressure 150/100 04/02/2023 9:53 AM CDT Pulse 97 04/02/2023 9:53 AM CDT Temperature - - Respiratory Rate - - Oxygen Saturation 97% 04/02/2023 9:53 AM CDT Inhaled Oxygen Concentration - - Weight 78.3 kg (172 lb 9.6 oz) 04/02/2023 9:53 A M CDT Height 154.9 cm (5' 1 ) 04/02/2023 9:53 AM CDT Body Mass Index 32.61 04/02/2023 9:53 AM CDT Plan of Treatment Health Maintenance Due Date Last Done Comments Colon Cancer Screening-Colonoscopy 1950 Depression Screening 1950 Fall Risk Assessment 1950 Hepatitis C Screening 1950 Osteoporosis Screening-Bone Density Scan 1950 Hepatitis B Screening 01/01/1968 Pneumococcal vaccine 65+ (1 of 1 - PCV) 01/01/2000 Zoster Vaccine (1 of 2) 01/01/2000 Well Visit 65+ 2014 Covid-19 Vaccine (6 - 2023-2 5 season) 2024 07/25/2022, 02/19/2022, 07/16/2021, Additional history exists Influenza Vaccine (Season Ended) 2025 07/25/2022, 07/27/2021, 06/28/2020, Additional history exists DTaP/Tdap/Td Vaccine (2 - Td or Tdap) 02/27/2032 02/26/2022 Insurance MEDICARE [employer] Care Teams Sequins Winder Relationship Specialty Start Date End Date Kd Weaver MD [address] [place] [address] PCP - General Emergency Medicine 12/16/22
--- OUTSIDE RECORDS SUMMARY | 2025-03-09 12:40 | XMS_ITS | Referral Summary ---
Author Organization [facility] [place] [address] [place] [address] Care Team Providers Care Hatchery Manager Name Role Phone Kd Weaver MD Primary [...] hips) 500 mg tablet,chewable Acti ve Ca-D3-mag vv-mpec-ith-man g-bor (Calcium 600-D3 Plus, mag-zinc,) 600 mg calcium- 20 mcg-50 mg tablet Take by mouth Active Active Problems Problem Noted Date Diagnosed Date SVT (supraventricular tachycardia) 04/02/2023 Social History Tobacco Use Types Packs/Day Years Used Date Smoking Tobacco: Former Cigarettes S tarted: 1984 Tobacco Cessation:Counseling Given: Not Answered Personal Safety Answer Date Recorded Getting School Help Needed Not on file 12/18 Comments Unknown Sex and Gender Information Value Date Recorded Sex Assigned at Not on file 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
== END 2025-03-09 12:37 | disposition home or self-care (01) ==
LOC: ANHIMG 12:38
PROVIDERS: PCP Emergency Medicine; Visit Provider Emergency Medicine
DX: M85.89 Other specified disorders of bone density and structure, multiple sites (principal); E55.9 Vitamin D deficiency, unspecified; Z78.0 Asymptomatic menopausal state; Z13.820 Encounter for screening for osteoporosis
CPT/HCPCS: 77080

== ENCOUNTER 2025-08-22 12:46 | Outpatient (CLI) | payer MEDICARE, SELFPAY ==
--- NOTE | ~2025-08-22 | MM_ITS ---
EXAMINATION: MM screening linda BI w marissa HISTORY: Screening TECHNIQUE: Craniocaudal and mediolateral oblique 3-D tomosynthesis images were obtained and synthetic 2-D images were generated. CAD analysis was submitted and interpreted. COMPARISON: Comparison to multiple prior studies sequentially, with oldest reviewed study dated 09/23/2018. BREAST PARENCHYMAL COMPOSITION: The breasts are almost entirely fatty. FINDINGS: There is no evidence of suspicious mass, calcification, or architectural distortion to suggest malignancy in either breast. Scattered benign-appearing calcifications are present. IMPRESSION: 1. No mammographic evidence of malignancy. 2. Recommend routine screening mammography in one year. BI-RADS Category 2: Benign finding(s). Reviewed, dictated and finalized at location B. OTHERAPIST
== END 2025-08-22 12:47 | disposition home or self-care (01) ==
LOC: MICIMG 12:48
PROVIDERS: PCP Emergency Medicine; Visit Provider Emergency Medicine
DX: Z12.31 Encounter for screening mammogram for malignant neoplasm of breast (principal)
CPT/HCPCS: 77063; 77067